=== PATIENT | male | born 1985 | race Caucasian/White ===

== ENCOUNTER 2018-03-28 17:30 | Emergency (ER) | payer BC ==
[2018-03-28 17:44] VITALS: BP 141/80
[2018-03-28] MEDS ORDERED: LIDOCAINE 2% 10 ML MDV SUBQ STA (18:05)
--- NOTE | 2018-03-28 18:07 | ED Physician Documentation ---
History of Present Illness - Stated complaint Stated Complaint: TOP LIP LAC/INJURY - Chief complaint Chief Complaint: Laceration - History obtained from History obtained from: Patient, Family - History of Present Illness Timing: Today Pain level max: 3 Pain level now: 3 Improved by: nothing Worsened by: nothing - Additonal information Additional information: patient is a 33 year old male who was hit in the upper lip with a tree branch today. suffered a laceration. no dental injury Review of Systems Musculoskeletal: denies: Neck pain, Back pain Neurologic: denies: Head injury, LOC PD PAST MEDICAL HISTORY - Past Medical History Past Medical History: No - Past Surgical History Past Surgical History: No - Social History Does the pt have substance abuse?: No - Family History Family history: reports: Non contributory - Immunizations Immunizations are current?: Yes Immunizations: TDAP current <10years PD ED PE NORMAL - Vitals Vital signs reviewed: Yes - General General: Alert and oriented X 3, No acute distress - HEENT HEENT: Moist mucous membranes, Dentition benign, Other (upper lip laceration, midline, crosses the jennifer border) - Neck Neck: Supple, no meningeal sign, No bony TTP - Derm Derm: Warm and dry - Neuro Neuro: Alert and oriented X 3 Results - Vitals Vitals: Vital Signs - 24 hr 03/28/18 17:41 Temperature 36.8 C Heart Rate 82 Respiratory 16 Rate Blood Pressure 141/80 H O2 Saturation 99 Oxygen O2 Source Room air Procedures - Laceration (location) upper lip laceration Length in cm: 2 Wound type: Irregular, Clean Neurovascular status: Sensory intact Anesthesia: Lidocaine 2% Wound Preparation: Irrigated copiously NS, Wound explored, To the base. No: FB identified Skin layer closure: Nylon (5-0), Interrupted, Sutures - enter # (4) Other: Patient tolerated well, Tetanus UTD Complexity: Other (jennifer border involved, crosses the border) PD MEDICAL DECISION MAKING - ED course Complexity details: considered differential, d/w patient, d/w family ED course: Patient is a 33-year-old male who presents to the emergency department with an upper lip laceration. The laceration crossed the vermil[place] border. His tetanus is up-to-date. Wound edges were carefully aligned and sutured. Tolerated well. No interior lip laceration. Warnings of infection and instructions on wound care given at bedside. Also counseled on how to minimize scarring. Patient counseled regarding signs and symptoms for which I believe and urgent re -evaluation would be necessary. Patient with good understanding of and agreement to plan and is comfortable going home at this time This document was made in part using voice recognition software. While efforts are made to proofread this document, sound alike and grammatical errors may occur. Departure - Departure Disposition: 01 Home, Self Care Clinical Impression: Lip laceration Qualifiers: Encounter type: initial encounter Qualified Code(s): S01.511A - Laceration without foreign body of lip, initial encounter Condition: Good Instructions: ED Laceration Mouth Follow-Up: your,doctor in 4-5 days for suture removal. [Other] Comments: Return if you worsen. Keep the wound clean. the sutures should be removed in 4- 5 days with your doctor. Discharge Date/Time: 03/28/18 18:38
== END 2018-03-28 18:38 | disposition home or self-care (01) ==
LOC: ED 17:30
DX: S01.511A Laceration without foreign body of lip, initial encounter (principal); W22.8XXA Striking against or struck by other objects, initial encounter
CPT/HCPCS: 13151; 99282; 99283